=== PATIENT | female | born 1990 | race Caucasian/White ===

== ENCOUNTER 2019-09-19 00:13 | Day surgery (SDC) | payer BC, SELFPAY ==
[2019-09-15 15:01] VITALS: BMI 20.7
[2019-09-19 11:46] VITALS: BP 127/76; PULSE 81; RESP 14; TEMP 36.9; O2SAT 99
[2019-09-19] MEDS: LACTATED RINGERS 1,000 ML 150 ML IV CONT (12:02)
--- NOTE | 2019-09-19 12:48 | WPDANESEPPF ---
Anes - Initial Pre Proc Eval Procedure: Operation Date: 09/19/19 12:30 Proposed Procedures p Colonoscopy - Pacheco Issa MD Date/Time: 09/19/19 12:48 Surgeon: Pacheco Issa MD Pre Op Diagnosis: Abdominal Cramping/ Diarrhea Patient Data Age: 29 Gender: F Height: 5 ft 7 in Weight: 57.9 kg Last Vital Signs Temp 98.4 F 09/19/19 11:46 Pulse 81 09/19/19 11:46 Resp 14 09/19/19 11:46 BP 127/76 09/19/19 11:46 Pulse Ox 99 09/19/19 11:46 Allergies Allergy/AdvReac Type Severity Reaction Status Date / Time No Known Allergies Allergy Verified 09/19/19 11:44 Home Medications Medication Instructions Recorded Confirmed Type Lactobacillus acidophilus 460 mg 460 mg PO DAILY 07/21/19 09/19/19 History (20 billion cell) capsule Patient hx anesthesia problems: none Family hx anesthesia problems: none PMFSH Past Medical History Medical History (Updated 09/19/19 @ 12:48 by Luis Leung MD) Abdominal cramping Healthy adult Family History Family History (Updated 06/30/18 @ 09:55 by DOCTOR UNKNOWN) Father Family history of hypercholesterolemia Hypertension Sibling Depression Mother Hypertension Colon polyp Grandparent Acute myocardial infarction Carcinoma of colon Other Diabetes mellitus Family history of cardiovascular disease Family history of glaucoma Family history of mental disorder Social History Social History Smoking status: Never smoker Alcohol intake: current Anes - Eval Final PreProcedure Day of Procedure 09/19/19 12:48 Patient weight: normal Heart: regular rate and rhythm Lungs: clear to auscultation Airway: Mallampati scale class 1 Neurological: alert and oriented Last oral intake: >/= 8 hours ASA classification: I Emergent: no Anesthetic plan: proceed Anesthesia type and monitoring: general GIVS and standard monitoring Informed Consent: The patient's anesthetic plan and its attendant risks and benefits were discussed with the patient/family/POA. Questions were solicited and answers provided to the satisfaction of the patient/family/POA.
--- NOTE | 2019-09-19 13:46 | PM.HPGS ---
History of Present Illness History of Present Illness Consent: Risks, benefits, and alternatives have been discussed and questions answered. Patient agrees to proceed with procedure. Chief complaint: Abdominal Cramping/ Diarrhea Narrative: Allegra Willis is a 29 year old female with abdominal cramping and loose stools Review of Systems Constitutional: Constitutional: Denies headache(s) and Denies weakness Eyes: Eyes: Denies blurry vision ENT: Reports Normal hearing present, Denies headache(s) and Denies neck pain Cardiovascular: Cardiovascular: Denies chest pain and Denies dyspnea Respiratory: Respiratory: Denies dyspnea Gastrointestinal: Gastrointestinal: Reports no additional gastrointestinal complaints Genitourinary: Genitourinary: Denies dysuria Musculoskeletal: Musculoskeletal: Denies neck pain Integumentary/Breasts: Skin/Breast: Denies dry skin Neurologic: Reports Normal hearing present, Denies headache(s) and Denies weakness Psychiatric: Psychiatric: Denies anxiety Endocrine: Endocrine: Denies change in body appearance Hematologic/Lymphatic: Hematologic/Lymphatic: Denies easy bleeding Allergic/Immunologic: Allergic/Immunologic: Denies urticaria PMFSH Past Medical History Medical History (Updated 09/19/19 @ 13:47 by Pacheco Issa MD) Abdominal cramping Bowel habit changes Healthy adult Family History Family History (Updated 06/30/18 @ 09:55 by DOCTOR UNKNOWN) Father Family history of hypercholesterolemia Hypertension Sibling Depression Mother Hypertension Colon polyp Grandparent Acute myocardial infarction Carcinoma of colon Other Diabetes mellitus Family history of cardiovascular disease Family history of glaucoma Family history of mental disorder Social History Social History Smoking status: Never smoker Alcohol intake: current Meds Home Medications and Allergies Home Medications Medication Instructions Recorded Confirmed Type Lactobacillus acidophilus 460 mg 460 mg PO DAILY 07/21/19 09/19/19 History (20 billion cell) capsule Allergies Allergy/AdvReac Type Severity Reaction Status Date / Time No Known Allergies Allergy Verified 09/19/19 11:44 Vital Signs Vital Signs - 24 hr 09/19/19 11:46 Temperature 98.4 F Pulse Rate 81 Respiratory Rate 14 Blood Pressure 127/76 Pulse Oximetry 99 Exam Const: General: comfortable and no acute distress HENMT: General nose exam: Normal nares present Eyes: General: appearance normal, both eyes and all related structures Neck: Neck: no JVD Resp: Auscultation: clear to auscultation bilaterally Cardio: Rate: regular rate Rhythm: regular rhythm GI: Inspection: non-distended GI Palp: Yes Soft to palpation Skin: General skin exam: normal color Neuro: General: gait normal Speech: normal speech Extrem: General: normal to inspection Psych: Mental Status: mental status grossly normal Assessment and Plan Assessment and plan (1) Abdominal cramping: Code(s): R10.9 - Unspecified abdominal pain Status: Acute (2) Bowel habit changes: Code(s): R19.4 - Change in bowel habit Status: Acute Assessment and Plan: will proceed with a colonoscopy
[2019-09-19 13:48] VITALS: BP 119/75; PULSE 91; RESP 18; O2SAT 99
[2019-09-19 13:58] VITALS: BP 124/78; PULSE 95; RESP 20; O2SAT 100
[2019-09-19 14:08] VITALS: BP 130/91; PULSE 90; RESP 20; O2SAT 100
== END 2019-09-19 14:23 | disposition home or self-care (01) ==
PROVIDERS: PCP Family Medicine; Visit Provider Internal Medicine Gastroenterology
PROC: 0DJD8ZZ Inspection of Lower Intestinal Tract, Via Natural or Artificial Opening Endoscopic (ICD-10-PCS; CPT 45378; principal; 2019-09-19 12:30)
DX: K52.9 Noninfective gastroenteritis and colitis, unspecified (principal); R10.84 Generalized abdominal pain; R19.4 Change in bowel habit
CPT/HCPCS: 45380; 88305; J2704; J7120

== ENCOUNTER 2019-10-19 07:35 | Outpatient (CLI) | payer BC, SELFPAY ==
--- NOTE | ~2019-10-19 | US_ITS ---
US right upper quadrant DATE: 10/19/2019 08:04 INDICATION: Elevated liver enzymes TECHNIQUE: Real-time imaging of the liver, pancreas, gallbladder COMPARISON: None FINDINGS: No hepatic or pancreatic space-occupying mass lesion is detected. Normal hepatic portal shantel ous flow direction. No gallstones, gallbladder wall thickening or abnormal pericholecystic fluid xander ection. The common bile duct measures 2.8 mm, normal. Negative sonographic Jean's sign. IMPRESSION: No significant abnormality Reviewed, dictated and finalized at [facility]. Reviewed, dictated and finalized at [facility]. IMPRESSION: No significant abnormality
== END 2019-10-19 07:36 | disposition home or self-care (01) ==
PROVIDERS: PCP Family Medicine; Visit Provider Physician Assistant Medical
DX: R74.8 Abnormal levels of other serum enzymes (principal)
CPT/HCPCS: 76705

== ENCOUNTER 2024-04-11 11:15 | Outpatient (CLI) | payer BC, SELFPAY ==
--- NOTE | ~2024-04-11 | US_ITS ---
US pelvic complete Ordering provider: Jeremy Reynoso, [place] History: . Ovarian cyst . Comparison: None. Technique: Transabdominal and endovaginal ultrasound of the pelvis (Doppler ultrasound interrogation techniques used as needed for this exam.) FINDINGS: CERVIX: Normal. UTERUS: Measures 7.5x 3.9x 4.7 cm in length which is within normal limits and is anteverted. No myom etrial masses. ENDOMETRIUM: Normal in thickness measuring 4 mm. No endometrial masses, cysts or fluid. CUL DE SAC: Trace of free fluid. RIGHT OVARY: Normal in size measuring 2.6x 1.7x 2.2 cm. Normal echotexture. Doppler vascular flow pre sent. LEFT OVARY: Normal in size measuring 2.4x 2.4x 3.4 cm. Normal echotexture. Doppler vascular flow pres ent. ADNEXA: Normal. No mass. IMPRESSION: Trace of free fluid in the pelvis. Otherwise, normal pelvic ultrasound. Reviewed, dictated and finalized at location [facility].
== END 2024-04-11 11:16 | disposition home or self-care (01) ==
LOC: MICIMG 11:16
PROVIDERS: PCP Family Medicine; Referring Provider Obstetrics & Gynecology Gynecology; Visit Provider Chiropractor
DX: N83.209 Unspecified ovarian cyst, unspecified side (principal)
CPT/HCPCS: 76856

== ENCOUNTER 2024-05-23 10:25 | Emergency (ER) | payer BC, SELFPAY ==
[2024-05-23 10:30] VITALS: BP 125/59; PULSE 88; RESP 16; TEMP 36.5; O2SAT 100
--- NOTE | 2024-05-23 11:01 | ED.GENADULT ---
HPI - General Adult General Chief complaint: Upper Respiratory Infection Stated complaint: Cough/Congestion Source: patient Mode of arrival: ambulatory Limitations: no limitations History of Present Illness HPI narrative: Patient presents for evaluation of a cough for the last few days. She states cough episodes occur with spasms in the chest. Her throat feels raw at night secondary to coughing. She indicates her cough is nonproductive. No fever, chills, nausea, vomiting, diarrhea. She is currently approximately eight weeks gestation. She denies any abdominal pain or vaginal bleeding. She called her OBGYN's office and the nurse indicated she could take robitussin. When she went to the pharmacy the pharmacist advised against it. She tried benadryl without improvement. Related Data Allergies Allergy/AdvReac Type Severity Reaction Status Date / Time No Known Allergies Allergy Verified 05/23/24 10:32 Review of Systems Review of Systems: CONSTITUTIONAL: Denies fever, chills, or sweats. EYES: Denies visual changes, redness, or discharge. ENT: Reports sensation of a raw throat . Denies rhinorrhea, congestion, sore throat, or otalgia. CARDIOVASCULAR: Denies chest pain, palpitations, or edema. RESPIRATORY: reports cough. Denies shortness of breath. GASTROINTESTINAL: Denies abdominal pain, nausea, vomiting, or diarrhea. GENITOURINARY: Denies dysuria or hematuria. SKIN: Denies rash or itching. MUSCULOSKELETAL: Denies back pain, joint pain, or myalgia. NEUROLOGIC: Denies headache, numbness, dizziness, or weakness. PSYCHIATRIC: Denies anxiety or depression. [facility] Past Medical History Medical History Abdominal cramping Bowel habit changes Elevated liver enzymes Healthy adult Microscopic colitis Surgical History Surgical History No pertinent past surgical history Family History Family History Father Family history of hypercholesterolemia Hypertension Sibling Depression Mother Hypertension Colon polyp Grandparent Acute myocardial infarction Carcinoma of colon Other Diabetes mellitus Family history of cardiovascular disease Family history of glaucoma Family history of mental disorder Social History Social History Smoking status: Never smoker Alcohol intake: current Exam Narrative: GENERAL: Well-appearing, well-nourished, and in no acute distress. HEAD: Normocephalic, atraumatic. EYES: PERRLA and EOMI. ENT: Nares clear, no rhinorrhea or epistaxis. Mucous membranes moist. Oropharynx without tonsillar hypertrophy exudate or other lesions. Bilateral TMs pearly [place] nonbulging NECK: Supple. No adenopathy or masses. No carotid bruits or JVD CHEST: Clear to auscultation. No respiratory distress. No wheezes rales or rhonchi HEART: Regular rate and rhythm. No murmur heard. Normal peripheral pulses. ABDOMEN: Soft, nontender, nondistended, normal active bowel sounds. EXTREMITIES: Normal range of motion. No edema. SKIN: Warm, dry, no rash. NEURO: No focal deficits. Alert and oriented x3. PSYCH: Normal mood and affect. Course Course Emergency Course: This is a 34 yr old female who presented for evaluation of cough. Flu and COVID were negative. She has no adventitious lung sounds to warrant chest x-ray. Advise she take Delsym for her symptoms. Keep appointment for ultrasound. She has no vaginal bleeding or abdominal pain. Follow-up with primary provider. Go to the ER for worsening symptoms. Patient in agreement with plan of care. Level of Care: Express Care Visit Vital Signs Vital signs: Vital Signs Temperature 36.5 C 05/23/24 10:30 Pulse Rate 88 05/23/24 10:30 Respiratory Rate 16 05/23/24 10:30 Blood Pressure 125/59 L 05/23/24 10:30 Pulse Oximetry 100 05/23/24 10:30 Temperature 36.5 C 05/23/24 10:30 Pulse Rate 88 05/23/24 10:30 Respiratory Rate 16 05/23/24 10:30 Blood Pressure 125/59 L 05/23/24 10:30 Pulse Oximetry 100 05/23/24 10:30 Oxygen Delivery Room Air 05/23/24 10:35 Medical Decision Making Vital Signs Vital Signs: Vital Signs Temperature 36.5 C 05/23/24 10:30 Pulse Rate 88 05/23/24 10:30 Respiratory Rate 16 05/23/24 10:30 Blood Pressure 125/59 L 05/23/24 10:30 Pulse Oximetry 100 05/23/24 10:30 Temperature 36.5 C 05/23/24 10:30 Pulse Rate 88 05/23/24 10:30 Respiratory Rate 16 05/23/24 10:30 Blood Pressure 125/59 L 05/23/24 10:30 Pulse Oximetry 100 05/23/24 10:30 Oxygen Delivery Room Air 05/23/24 10:35 Lab Data Labs: Lab Results 05/23/24 Range/Units 11:14 POC Influenza A Ag Negative (Negative) POC Influenza B Ag Negative (Negative) POC SARS CoV-2 Ag Negative (Negative) Discharge Plan Discharge Clinical Impression: Viral URI Patient Disposition: Home, Self-Care Condition: Stable Instructions: Antibiotic Form, Upper Respiratory Infection (DC) Additional Instructions: DELSYM(DEXTROMETHORPHAN) SHOULD HELP WITH COUGH STAY WELL HYDRATED PLEASE KEEP YOUR APPOINTMENT FOR YOUR ULTRASOUND Patient Language: Dutch Follow-up/Referrals: Melanie Vazquez MD [Primary Care Provider] - Time of Disposition: 11:18
[2024-05-23 11:16] LABS: EDCOVIDSCREEN Negative (Negative)
[2024-05-23 11:17] LABS: EDINFLUASCREEN Negative (Negative); EDINFLUBSCREEN Negative (Negative)
== END 2024-05-23 11:22 | disposition home or self-care (01) ==
PROVIDERS: Emergency Provider Nurse Practitioner; PCP Family Medicine
DX: O99.511 Diseases of the respiratory system complicating pregnancy, first trimester (principal); Z3A.08 8 weeks gestation of pregnancy; J06.9 Acute upper respiratory infection, unspecified; Z20.822 Contact with and (suspected) exposure to COVID-19
CPT/HCPCS: 87426; 87804; 99212; G0463

== ENCOUNTER 2024-06-02 14:23 | Outpatient (CLI) | payer BC, SELFPAY ==
--- NOTE | ~2024-06-02 | US_ITS ---
EXAMINATION: US OB <= 14 weeks fetus DATE: 06/02/2024 15:29 INDICATION: Confirmation of viability during first trimester TECHNIQUE: Real-time pelvic ultrasound utilizing both a transvaginal and transabdominal probe was pe rformed. The interpreting radiologist was not present for the study. COMPARISON: None. FINDINGS: The uterus measures 10.3 x 6.7 x 7.3 cm. There is an intrauterine gestational sac. A yolk sac and fe guadalupe pole are identified. The crown rump length measures 2.6 cm, which correlates with an estimated ge stational age of 9 weeks and 3 days. heart motion is identified measuring 182 beats per minute (bpm) by M-mode Doppler. The right ovary is not visualized. The left ovary measures 3.0 x 2.2 x 2.6 cm. There is no free fluid in the pelvis. IMPRESSION: 1. Single living fetus with heart rate of 182 bpm. 2. Gestational age by ultrasound of 9 weeks 3 day(s) +/- 6 day(s) with ultrasound estimated date of delivery ([facility]) of 01/04/2025. Reviewed, dictated and finalized at location [facility]. [employer]OPMENT [employer]CHNICAL LEAD IMPRESSION: 1. Single living fetus with heart rate of 182 bpm. 2. Gestational age by ultrasound of 9 weeks 3 day(s) +/- 6 day(s) with ultraso und estimated date of delivery ([facility]) of 01/04/2025.
== END 2024-06-02 14:24 | disposition home or self-care (01) ==
PROVIDERS: PCP Advanced Practice Midwife; Visit Provider Advanced Practice Midwife
DX: O36.80X0 Pregnancy with inconclusive fetal viability, not applicable or unspecified (principal); Z3A.00 Weeks of gestation of pregnancy not specified
CPT/HCPCS: 76801

== ENCOUNTER 2025-07-05 10:27 | Emergency (ER) | payer BC, SELFPAY ==
[2025-07-05 11:00] VITALS: BP 132/88; PULSE 110; RESP 16; TEMP 37.1; O2SAT 100
--- NOTE | 2025-07-05 11:03 | ED_ITS ---
HPI - URI/Sore Throat General Chief Complaint: Upper Respiratory Infection Stated Complaint: sinus issues, sick Time Seen by Provider: 07/05/25 10:30 Source: patient Mode of arrival: ambulatory Limitations: no limitations History of Present Illness HPI Narrative: Patient is a 35-year-old female who presents with intermittent URI symptoms for the past 4 weeks. Worsening symptoms the last 2. Symptoms include co ngestion, drainage, headache, ear pain, sore throat, cough. Has been taking ibuprofen and dull some. Denies any fever, chills, nausea, vomiting, diarrhea. Related Data Allergies Allergy/AdvReac Type Severity Reaction Status Date / Time No Known Allergies Allergy Verified 07/05/25 11:06 Review of Systems Review of Systems: All systems reviewed & are unremarkable except as noted in HPI and below Constitutional: Constitutional: Denies chills, Denies fatigue, Denies fever(s), Reports headache(s), Denies malaise and Denies weakness Eyes: Eyes: Denies blurry vision, Denies itchy eyes and Denies loss of vision ENT: Reports otalgia, Denies headache(s), Reports nasal congestion, Denies sinus pain and Reports sore throat Cardiovascular: Cardiovascular: Denies chest pain, Denies irregular heart rhythm and Denies dyspnea Respiratory: Respiratory: Reports cough and Denies dyspnea Gastrointestinal: Gastrointestinal: Denies abdominal pain, Denies diarrhea, D enies nausea and Denies vomiting Musculoskeletal: Musculoskeletal: Denies back pain, Denies myalgias and Denies arthralgias Integumentary/Breasts: Skin/Breast: Denies pruritus and Denies rash Neurologic: Denies headache(s), Denies loss of vision and Denies weakness Psychiatric: Psychiatric: Reports no additional psychiatric complaints Endocrine: Endocrine: Denies fatigue Allergic/Immunologic: Allergic/Immunologic: Denies itchy eyes PMFSH Past Medical History Medical History Microscopic colitis Elevated liver enzymes Bowel habit changes Healthy adult Abdominal cramping Surgical History Surgical History No pertinent past surgical history Family History Family History Father Family history of hypercholesterolemia Hypertension Sibling Depression Mother Hypertension Colon polyp Grandparent Acute myocardial infarction Carcinoma of colon Other Diabetes mellitus Family history of cardiovascular disease Family history of glaucoma Family history of mental disorder Social History Social History Smoking status: Never smoker Alcohol intake: current Comments At time of signature, agree with nursing past medical, surgical, social and family history. There is no relevant family history pertinent to the presenting complaint. Exam Const: General: cooperative, healthy appearing, comfortable, no acute distress and well nourished Nutritional Appearance: well nourished Orientation/consciousness: patient oriented x3 Limitations: no limitations HENMT: Head: normal to inspection, normocephalic and atraumatic Ears: hearing grossly normal bilaterally, external ears normal, TM's normal bilaterally, EAC's normal and no periauricular adenopathy Face/Nose/Sinus: Normal external nose present, Abnormal mucous membranes and turbinates present erythematous bilateral and diffuse, normal facial exam, sinuses nontender and face symmetric Face and sinus: normal facial exam, sinuses nontender and face symmetric Mouth: Yes Normal oral and palatal mucosa present, Yes lip normal, Yes tongue normal, Yes Normal salivary glands and ducts present, Yes oropharynx normal and Yes moist mucous membranes Teeth and gingiva: dentition normal Throat: posterior oropharynx normal, tonsils normal and uvula midline Eyes: General: appearance normal, both eyes and all related structures Alignment and Position: alignment normal and position normal Periorbital: periorbital findings normal Eyelids: eyelids normal Pupils: Equal, round and reactive pupils present Neck: Neck: normal visual inspection, full ROM, no lymphadenopathy and supple Chest: Chest palpation & inspection: normal inspection of the chest and normal palpation of entire chest wall Resp: Effort & Inspection: normal respiratory effort and able to speak in complete sentences Auscultation: clear to auscultation bilaterally, no crackles, no rales, no rhonchi and no wheezes Cardio: Rate: tachycardic Rhythm: regular rhythm Heart sounds: S1 normal heart sound present and S2 normal heart sound present GI: Inspection: normal to inspection Skin: General skin exam: normal color and no rashes or lesions noted Neuro: General: patient oriented x3 and moves all extremities Cranial nerves: Yes Equal, round and reactive pupils present Speech: normal speech Gait exam (Neuro): Normal gait present Extrem: General: normal to inspection, full ROM and no edema Psych: Appearance: grossly normal and well kempt Mental Status: mental status grossly normal Speech and movement: Normal speech and movement present Affect: normal affect Attitude: cooperative Thought process: Normal thought process present Course Course Emergency Course: Patient is aware of diagnosis, understands and agrees to treatment plan. Anticipatory guidance given. Patient agrees to follow-up as directed and is a gonzalez of reasons to seek care at the emergency department. Portions of this record may have been created with voice recognition software Level of Care: Express Care Visit Vital Signs Vital signs: Vital Signs Temperature 37.1 C 07/05/25 11:00 Pulse Rate 110 H 07/05/25 11:00 Respiratory Rate 16 07/05/25 11:00 Blood Pressure 132/88 07/05/25 11:00 Pulse Oximetry 100 07/05/25 11:00 Temperature 37.1 C 07/05/25 11:00 Pulse Rate 110 H 07/05/25 11:00 Respiratory Rate 16 07/05/25 11:00 Blood Pressure 132/88 07/05/25 11:00 Pulse Oximetry 100 07/05/25 11:00 [facility] MDM Narrative Medical decision making narrative: Based on symptoms and length of illness will treat with antibiotics. Will treat with steroids due to . Pt well hydrated appearing, in no respiratory distress, hemodynamically stable. Recommend supportive care. The patient is stable at time of discharge the clinical impression was discussed and the patient was given the opportunity to ask questions, which were addressed as completely as possible given the information available at present. Anticipatory guidance and return to care precautions were discussed and the importance of primary care follow-up was stressed and encouraged. The patient voiced understanding of the plan, indications to return, and the need for follow-up. Exam findings show no acute concerns or changes Patient is appropriate for outpatient treatment and follow-up. Differential Diagnosis Differential Diagnosis: Differential diagnosis considered: Shipman virus, strep pharyngitis, allergic rhinitis, upper respiratory tract infection, sinusitis, rhinosinusitis, nasopharyngitis. viral pharyngitis, otitis media, otitis externa, otitis effusion, foreign body, cerumen impaction, viral syndrome, and influenza. Medical Records I have reviewed the following patient records and this information was taken into consideration when formulating the assessment and plan.: previous clinic visits Discharge Plan Discharge Clinical Impression: Upper respiratory infection with cough and congestion Patient Disposition: Home Condition: Stable Instructions: Upper Respiratory Infection (ED) Additional Instructions: Take antibiotic as prescribed. Other symptomatic treatments include: -Alternate Tylenol and Motrin per package directions for fever or pain: Tylenol 650-1000mg by mouth every 4-6 hours. Do not exceed 4000mg in 24 hours. Advil (Ibuprofen) 600 mg by mouth every 6 hours. Do not exceed 2400mg in 24 hours. 8 AM: Tylenol 11 AM: Ibuprofen 2 PM: Tylenol 5 PM: Ibuprofen 8 PM: Tylenol 11 PM: Ibuprofen 2 AM: Tylenol 5 AM: Ibuprofen -Antihistamine medication such as Benadryl at night and Zyrtec/Claritin/[place] during the day can help improve symptoms. -Use Flonase twice a day for 5 days then daily to help reduce the inflammation and dry up your sinuses. -You can also use Sudafed or Mucinex. Be sure to drink plenty of water with these medications at least 8 ounces with every dose and it is important to drink 8 to 10 glasses of water per day. Water is a natural decongestant -Eat and drink things that are easy to swallow, like tea or soup, or popsicles. -Oral rinses such as: Salt water gargles and/or may use topical anesthetic (eg. Chloraseptic spray) or lozenges to relieve dryness or throat pain). -Frequent hand washing or hand industrial photographer is one of the best ways to prevent spread of infection. -Using a vaporizer or humidifier at night will also help thin secretions and help with coughing up phlegm. Call your Primary Care Doctor and make a follow-up appointment in 3 days. If your cough worsens, you develop a fever greater than 103, you develop shaking chills, a fast heartbeat, trouble breathing and/or feel you are are breathing much faster than usual, call your Primary Care Doctor or go to the ER. Patient Language: Yi Prescriptions: New amoxicillin-pot clavulanate 875-125 mg tablet 1 tablet PO Q12H 10 Days Qty: 20 0RF fluticasone propionate [Flonase Allergy Relief] 50 mcg/actuation spray,suspension 1 spray intranasal DAILY Qty: 16 0RF Rx Instructions: administer into each nostril loratadine 10 mg tablet 10 mg PO DAILY Qty: 30 0RF Follow-up/Referrals: Fortino Castellon MD [Physician, Family Practice] - 3 Days Time of Disposition: 11:32
== END 2025-07-05 11:38 | disposition home or self-care (01) ==
PROVIDERS: Emergency Provider Nurse Practitioner Family
DX: J06.9 Acute upper respiratory infection, unspecified (principal); R05.9 Cough, unspecified
CPT/HCPCS: 99213; G0463